=== PATIENT | female | born 1950 | race Caucasian/White ===

== ENCOUNTER 2017-03-12 13:19 | Emergency (ER) | payer OTHER ==
[2017-03-12 13:30] VITALS: BP 151/94; PULSE 64; BMI 42.0
--- NOTE | 2017-03-12 13:53 | PDOC ---
History of Present Illness - General History Source: Patient Exam Limitations: No Limitations - History of Present Illness Initial Comments: 03/12/17 14:08 The patient is a 66 year old female with a significant past medical history of migraines and hypertension, who presents to the ER with right facial droop since last night. Patient states she had a sudden onset of numbness on the right face last night. She states she later developed a right facial droop and is unable to fully close her right eye. Patient reports she had occular migraines one week ago, for which she took 2 tylenols to relieve the pain. Denies dizziness Denies weakness in the extremities Denies paresthesia Denies nausea, vomiting Denies fever, chills, cough PCP: Dr. Zuñiga <Jennifer Wyatt - Last Filed: 03/12/17 14:13> <Starla Velarde - Last Filed: 03/14/17 09:28> - General Chief Complaint: Facial Droop Stated Complaint: POSSIBLE STROKE Past History <Jennifer Wyatt - Last Filed: 03/12/17 14:13> - Past Medical History HTN: Yes Hypercholesterolemia: Yes - Surgical History Cholecystectomy: Yes - Psycho/Social/Smoking Cessation Hx Anxiety: No Suicidal Ideation: No Smoking History: Current every day smoker Have you smoked in the past 12 months: No Number of Cigarettes Smoked Daily: 5 Information on smoking cessation initiated: No Hx Alcohol Use: No Drug/Substance Use Hx: No Substance Use Type: None <Starla Velarde - Last Filed: 03/14/17 09:28> - Past Medical History Allergies/Adverse Reactions: Allergies Allergy/AdvReac Type Severity Reaction Status Date / Time No Known Allergies Allergy Verified 03/12/17 13:30 Home Medications: Ambulatory Orders Amlodipine Besylate [Norvasc -] 5 mg PO DAILY 03/02/15 Carvedilol [Coreg -] 25 mg PO BID 03/02/15 Losartan/Hydrochlorothiazide [Losartan-Hctz 100-12.5 mg Tab] 1 each PO DAILY 03/11 Pravastatin Sodium [Pravachol (Nf)] 40 mg PO HS 03/02/15 Prednisone [Prednisone 50 MG TABLETS] 50 mg PO DAILY #5 tablet 03/12/17 Valacyclovir HCl [Valtrex -] 1,000 mg PO TID #21 tablet 03/12/17 Review of Systems - Review of Systems Able to Perform ROS?: Yes Comments:: 03/12/17 14:08 GENERAL/CONSTITUTIONAL: No fever or chills. No weakness. HEAD, EYES, EARS, NOSE AND THROAT: (+) right facial droop. No change in vision. No ear pain or discharge. No sore throat. CARDIOVASCULAR: No chest pain or shortness of breath. RESPIRATORY: No cough, wheezing, or hemoptysis. GASTROINTESTINAL: No nausea, vomiting, diarrhea or constipation. GENITOURINARY: No dysuria, frequency, or change in urination. MUSCULOSKELETAL: No joint or muscle swelling or pain. No neck or back pain. SKIN: No rash NEUROLOGIC: No headache, vertigo, loss of consciousness, or change in strength/ sensation. ENDOCRINE: No increased thirst. No abnormal weight change. HEMATOLOGIC/LYMPHATIC: No anemia, easy bleeding, or history of blood clots. ALLERGIC/IMMUNOLOGIC: No hives or skin allergy. <Uts,Jennifer - Last Filed: 03/12/17 14:13> *Physical Exam - Vital Signs Last Vital Signs Temp Pulse Resp BP Pulse Ox 64 18 151/94 95 03/12/17 13:24 03/12/17 13:24 03/12/17 13:24 03/12/17 13:24 - Physical Exam Comments: 03/12/17 14:09 GENERAL: Awake, alert, and fully oriented, in no acute distress HEAD: No signs of trauma EYES: PERRLA, EOMI, sclera anicteric, conjunctiva clear ENT: Auricles normal inspection, hearing grossly normal, nares patent, oropharynx clear without exudates. Moist mucosa NECK: Normal ROM, supple, no lymphadenopathy, JVD, or masses LUNGS: Breath sounds equal, clear to auscultation bilaterally. No wheezes, and no crackles HEART: Regular rate and rhythm, normal S1 and S2, no murmurs, rubs or gallops ABDOMEN: Soft, nontender, normoactive bowel sounds. No guarding, no rebound. No masses EXTREMITIES: Normal range of motion, no edema. No clubbing or cyanosis. No cords, erythema, or tenderness NEUROLOGICAL: Right facial droop that includes eye, lower face, and forehead. Otherwise cranial nerves intact. Ambulatory with steady gate. Sensation intact. Cranial nerves II through XII grossly intact. Normal speech, normal gait SKIN: Warm, Dry, normal turgor, no rashes or lesions noted. <Jennifer Wyatt - Last Filed: 03/12/17 14:13> - Vital Signs Last Vital Signs Temp Pulse Resp BP Pulse Ox 64 18 151/94 95 03/12/17 13:24 03/12/17 13:24 03/12/17 13:24 03/12/17 13:24 <Starla Velarde - Last Filed: 03/14/17 09:28> Medical Decision Making - Medical Decision Making 03/12/17 14:18 Pt presents to the ED complaining of a one day history of R facial droop that involves her forehead and eyebrow as well as her lower face. When I examine her , she cannot completely close her eye on the R side and has a facial droop and a decreased nasolabial fold on the right. Otherwise, she is completely neurolgically intact. Will dsicharge patient home with acyclovir and prednisone and follow up with her PMD. <Starla Velarde - Last Filed: 03/14/17 09:28> *DC/Admit/Observation/Transfer - Attestations Scribe Attestion: 03/12/17 14:11 Documentation prepared by Jennifer Wyatt, acting as medical technician for Emergency Dept, [facility]. <Jennifer Wyatt - Last Filed: 03/12/17 14:13> - Discharge Dispostion Admit: No <Starla Velarde - Last Filed: 03/14/17 09:28> Diagnosis at time of Disposition: facial droop - Discharge Dispostion Disposition: HOME Condition at time of disposition: Good - Prescriptions Prescriptions: Prednisone [Prednisone 50 MG TABLETS] 50 mg PO DAILY #5 tablet Valacyclovir HCl [Valtrex -] 1,000 mg PO TID #21 tablet - Referrals Referrals: Gavin Zuñiga MD [Primary Care Provider] - - Patient Instructions Printed Discharge Instructions: DI for Ochoa's Palsy Additional Instructions: Call you primary care doctor to make a follow up appointment within one week. Return to the ED for new weakness or numbness. Use eye drops to keep your eye from becoming irritated. Consider wearing an eye patch at night to protect your eye. Return to the ED for eye redness, eye pain, changes in your vision.
== END 2017-03-12 14:21 | disposition home or self-care (01) ==
LOC: JER 13:19
DX: G51.0 Bell's palsy (principal); I10 Essential (primary) hypertension; G43.909 Migraine, unspecified, not intractable, without status migrainosus
CPT/HCPCS: 99282-25

== ENCOUNTER 2018-07-12 10:01 | Emergency (ER) | payer OTHER ==
[2018-07-12 10:27] VITALS: TEMP 98.9; BMI 39.6
[2018-07-12] MEDS ORDERED: SODIUM CHLORIDE 500 ML IV STA (11:14)
[2018-07-12] MEDS ORDERED: KETOROLAC TROMETHAMINE 30 MG/1 ML VIAL IM ONE (11:15)
[2018-07-12] MEDS ORDERED: KETOROLAC TROMETHAMINE 30 MG/1 ML VIAL ONE (11:23)
--- NOTE | 2018-07-12 11:24 | PDOC ---
History of Present Illness - General Chief Complaint: Pain, Acute Stated Complaint: BACK PAIN Time Seen by Provider: 07/12/18 10:43 - History of Present Illness Initial Comments: 07/12/18 11:16 68 yo F w/ PMH HTN, HLD, , b/l breast lumpectomy, hemithyroidectomy w / 2 parathyroid removal, parotid gland removal, meningioma? bells palsy?, multiple R kidney stones, p/w persistent and intermittent 8/10 L flank pain x5d. Pain radiates to lower abd. pt took advil and tylenol but did not help. pt does not drink enough water. pt went to urgent care 2 days ago. They did CXR which was nl and found on labs hematuria. They told her she has MSK pain. Pt says pain is similar to when she had her R kidney stones but is less severe and is not associated w/ n/v. Denies fevers, chills, cp, sob, n/v/d, urinary sxs, blood in stools, trauma, numbnes, tingling. She has required ureteral stents in the past. pain is now 5/10 SH: denies etoh drugs. smoke 1/2 ppd/25yr Meds: calcium 600qd, coreg, losartan, amlodipine Past History - Past Medical History Allergies/Adverse Reactions: Allergies Allergy/AdvReac Type Severity Reaction Status Date / Time No Known Allergies Allergy Verified 07/12/18 10:24 Home Medications: Ambulatory Orders Amlodipine Besylate [Norvasc -] 5 mg PO DAILY 03/02/15 Carvedilol [Coreg -] 25 mg PO BID 03/02/15 Losartan/Hydrochlorothiazide [Losartan-Hctz 100-12.5 mg Tab] 1 each PO DAILY 03/11 Rosuvastatin [Crestor -] 40 mg PO DAILY 07/12/18 Tramadol HCl [Ultram] 50 mg PO BID PRN #7 tablet MDD 2 tabs 07/12/18 COPD: No HTN: Yes Hypercholesterolemia: Yes Other medical history: kidney stones - Surgical History Cholecystectomy: Yes - Suicide/Smoking/Psychosocial Hx Smoking History: Current some day smoker Have you smoked in the past 12 months: No Number of Cigarettes Smoked Daily: 1 Information on smoking cessation initiated: No Hx Alcohol Use: No Drug/Substance Use Hx: No Substance Use Type: None Review of Systems - Review of Systems Constitutional: Yes: See HPI HEENTM: Yes: See HPI Respiratory: Yes: See HPI Cardiac (ROS): Yes: See HPI ABD/GI: Yes: See HPI : Yes: See HPI Musculoskeletal: Yes: See HPI Integumentary: Yes: See HPI Neurological: Yes: See HPI Endocrine: Yes: See HPI Hematologic/Lymphatic: Yes: See HPI *Physical Exam - Vital Signs Last Vital Signs Temp Pulse Resp BP Pulse Ox 98.9 F 71 16 154/108 H 99 07/12/18 10:24 07/12/18 10:24 07/12/18 10:24 07/12/18 10:24 07/12/18 10:24 - Physical Exam Comments: 07/12/18 11:24 General: Well-nourished, NAD HEENT: NCAT, MMM Neck: supple. no lymphadenopathy Respiratory: CTAB cardio: RRR S1 S2 no m/r/g. Abdomen: +BS , soft, NTND. L CVA tenderness?, TTP L lower chest wall, may be in region of kidney but unclear Extremities: radial 2+ b/l. Warm, dry, no cyanosis, edema, clubbing or calf tenderness. Skin: intact. no rashes Neuro: Alert and oriented x3, strength sensation grossly intact. Psych: Normal mood and affect ED Treatment Course - LABORATORY CBC & Chemistry Diagram: 07/12/18 11:30 07/12/18 11:30 - RADIOLOGY Radiology Studies Ordered: Category Date Time Status ABDOMEN & PELVIS CT W/O CONTR [CT] Stat CT Scan 07/12/18 11:15 Ordered Medical Decision Making - Medical Decision Making 07/12/18 11:27 68 yo F w/ PMH HTN, HLD, , b/l breast lumpectomy, hemithyroidectomy w / 2 parathyroid removal, parotid gland removal, meningioma? bells palsy?, multiple R kidney stones, p/w persistent and intermittent 8/10 L flank pain x5d. mildly hypertensive otherwise afebrile and vitals wnl Ddx: nephrolithiasis, MSK pain, UTI, Pyleo -CBC, CMP, UA -CT A/P w/o con -IVF 500cc -IV toradol 30 07/12/18 14:[address] - There is no hydronephrosis Several nonobstructing bilateral renal calculi are noted. An 11 x 8 x 6 cm lobulated noncalcified soft tissue structure is seen on abutting the posterior border of the uterine body. This focus could conceivably represent a subserosal/pedunculated leiomyoma versus representing a possible nonspecific contiguous mass lesion. Neither ovary can be definitely visualized on the current exam. Correlate with sonography is suggested as well as nonemergent MRI. A 1.3 cm spherical fluid structure is noted abutting the anterior abdominal wall musculature in the slightly right paramedian position possibly representing a fluid-filled hernia sac. pt's pain likely caused by possible subserosal/pedunculated leiomyoma pt informed and given verbal and written dc instruction will refer pt to OBGYN pain improved w/ toradol pt stable and ready for discharge *DC/Admit/Observation/Transfer Diagnosis at time of Disposition: Fibroid - Discharge Dispostion Disposition: HOME Condition at time of disposition: Stable Decision to Admit order: No - Prescriptions Prescriptions: Tramadol HCl [Ultram] 50 mg PO BID PRN #7 tablet MDD 2 tabs PRN Reason: Pain - Referrals Referrals: Delfin Pendleton MD [Staff Physician] - 1 week Gavin Zuñiga MD [Primary Care Provider] - 1 week - Patient Instructions Printed Discharge Instructions: DI for Uterine Fibroids, Uterine Fibroids Additional Instructions: you came in for pain in your left back your labs were grossly unremarkable and showed no signs of infection. Your CT of the stomach showed some stones that were non-obstructive. It also showed a possible fibroid in the back of the uterus. This may be the cause of your back pain. You may need an outpatient ultrasound or MRI to further characterize the possible fibroid. Please follow up with an OBGYN. We will also refer you to OBGYN Dr. Pendleton. Please continue your home meds. Please hydrate yourself well with fluids We will prescribe you tramadol for the pain. Please follow up with your primary physician within 1 week Please follow up with Dr Pendleton within 1 week If you experience any worsening of back or abdominal pain, fevers, chills, chest pain, worsening shortness of breath, nausea, vomit, diarrhea, blood in your urine, pain on urination please call 911 or come back to the ER. - Post Discharge Activity
--- NOTE | 2018-07-12 11:26 | PDOC ---
Attending Attestation - Resident Resident Name: Raza Arteaga - ED Attending Attestation I have performed the following: I have examined & evaluated the patient, The case was reviewed & discussed with the resident, I agree w/resident's findings & plan - HPI HPI: 07/12/18 11:23 68-year-old female with history of hypertension, parathyroid CA, nephrolithiasis presents with 2-3 days of intermittent left flank pain radiating to the right groin. Patient was seen in urgent care, was noted to have hematuria on urinalysis but was diagnosed with muscular skeletal pain. Presents today with persistent and intermittent left flank pain, tender to 10 at its maximum, 5 out of 10 at baseline. No associated nausea/vomiting/diarrhea/ constipation, no associated urinary complaints or gross hematuria, no [employer]IE[employer] DISPATCHER SERVICE complaints. No fevers or chills. States pain is similar to past kidney stone pain, but typically has nausea with her renal colic. She has required ureteral stents in the past. - Physicial Exam PE: 07/12/18 11:25 Slightly elevated blood pressure, otherwise afebrile and well-appearing Conversant, pleasant No jaundice or pallor Heart and lungs are regular and clear Abdomen is soft and nondistended, positive left CVA tenderness without other guarding or rebound in the abdomen. No rash, no focal bony abnormalities. - Medical Decision Making 07/12/18 11:25 68-year-old female with intermittent left flank pain now for 3 days, otherwise well-appearing. Presentation could be most consistent with nephrolithiasis, rule out superimposed kidney injury or infection or high grade obstruction given 3 days of symptoms. Less likely GI or [employer]IE[employer] DISPATCHER [employer]ICE related. Labs, urinalysis Will need CT imaging given duration of symptoms IV fluids, pain control Reassess
[2018-07-12 11:49] LABS: BASO % 1.1 % (0-2.0); EOS % 1.8 % (0-4.5); HEMATOCRIT 40.2 % (32.4-45.2); HEMOGLOBIN 12.9 GM/dL (10.7-15.3); LYMPH % 36.4 % (8-40); MCH 20.9 pg (25.7-33.7); MCHC 32.2 g/dl (32.0-36.0); MEAN CELL VOLUME 64.9 fl (80-96); MEAN PLT VOLUME 8.8 fl (7.5-11.1); MONO % 10.5 % (3.8-10.2); NEUT % 50.2 % (42.8-82.8); PLATELET COUNT 177 K/MM3 (134-434); RBC 6.19 M/mm3 (3.60-5.2); RDW 15.8 % (11.6-15.6); WHITE BLOOD COUNT 6.2 K/mm3 (4.0-10.0)
[2018-07-12 11:51] LABS: URINE APPEARANCE CLEAR; URINE BILIRUBIN NEGATIVE (<2.0 mg/dL); URINE COLOR COLORLESS; URINE GLUCOSE (UA) NEGATIVE (NEGATIVE); URINE KETONE NEGATIVE (NEGATIVE); URINE LEUK ESTERASE NEGATIVE (NEGATIVE); URINE NITRITE NEGATIVE (NEGATIVE); URINE PROTEIN NEGATIVE (NEGATIVE); URINE UROBILINOGEN NEGATIVE mg/dL (0.2-1.0)
[2018-07-12 12:03] LABS: EPI CELLS RARE /HPF (FEW)
[2018-07-12 12:16] LABS: ALBUMIN 4.1 g/dl (3.4-5.0); ALK PHOS 55 U/L (45-117); ANION GAP 7 MMOL/L (8-16); BILIRUBIN,TOTAL 1.8 mg/dL (0.2-1); BLOOD UREA NITROGEN 15 mg/dL (7-18); CHLORIDE 110 mmol/L (98-107); CO2 26 mmol/L (21-32); CREATININE 0.5 mg/dL (0.55-1.3); GLUCOSE,RANDOM 101 mg/dL (74-106); POTASSIUM 3.9 mmol/L (3.5-5.1); SGOT/AST 12 U/L (15-37); SGPT/ALT 25 U/L (13-61); SODIUM 144 mmol/L (136-145); TOT PROT 7.4 g/dl (6.4-8.2)
[2018-07-12 13:40] LABS: ANISOCYTOSIS 1+; MACROCYTOSIS 1+; OVALOCYTE 1+; TARGET CELLS 1+
[2018-07-12 14:54] VITALS: BP 148/92; PULSE 88
== END 2018-07-12 14:55 | disposition home or self-care (01) ==
LOC: JER 10:01
PROC: 3E0337Z Introduction of Electrolytic and Water Balance Substance into Peripheral Vein, Percutaneous Approach (ICD-10-PCS; principal; 2018-07-12)
PROC: 3E0233Z Introduction of Anti-inflammatory into Muscle, Percutaneous Approach (ICD-10-PCS; 2018-07-12)
DX: D25.9 Leiomyoma of uterus, unspecified (principal); I10 Essential (primary) hypertension; E78.00 Pure hypercholesterolemia, unspecified; N20.0 Calculus of kidney; Z87.442 Personal history of urinary calculi
CPT/HCPCS: 36415; 74176-TC; 80053; 81003; 81015; 85025; 96360; 96372; 99284-25